=== PATIENT | female | born 2000 | race Caucasian/White ===

== ENCOUNTER 2020-02-22 15:31 | Emergency (ER) | payer OTHER ==
[~2020-02-22] VITALS: Ht 157.5 cm; Wt 63.5 kg
== END 2020-02-22 20:11 | disposition home or self-care (01) ==
LOC: ER 15:31
DX: O26.891 Other specified pregnancy related conditions, first trimester (principal); K29.60 Other gastritis without bleeding; Z3A.01 Less than 8 weeks gestation of pregnancy

== ENCOUNTER 2020-03-14 13:32 | Emergency (ER) | payer OTHER ==
[~2020-03-14] VITALS: Ht 157.5 cm; Wt 62.6 kg
[2020-03-14] MEDS ORDERED: PRENATABS FA T1 EACH (13:42)
== END 2020-03-14 17:24 | disposition home or self-care (01) ==
LOC: ER 13:32
DX: O26.891 Other specified pregnancy related conditions, first trimester (principal); R51 Headache; O26.851 Spotting complicating pregnancy, first trimester; O36.80X0 Pregnancy with inconclusive fetal viability, not applicable or unspecified; Z03.818 Encounter for observation for suspected exposure to other biological agents ruled out; Z3A.09 9 weeks gestation of pregnancy

== ENCOUNTER → 2020-06-05 | Outpatient (CLI) | payer OTHER ==
[~2020-06-05] MED LIST: PRENATABS FA T1 EACH
== END | disposition home or self-care (01) ==
LOC: PRENATAL 13:00
PROVIDERS: ATTEND Obstetrics & Gynecology Maternal & Fetal Medicine
DX: O35.0XX1 Maternal care for (suspected) central nervous system malformation in fetus, fetus 1 (principal); O35.3XX1 Maternal care for (suspected) damage to fetus from viral disease in mother, fetus 1; O98.512 Other viral diseases complicating pregnancy, second trimester; O99.891 Other specified diseases and conditions complicating pregnancy; Z36.89 Encounter for other specified antenatal screening; Z3A.22 22 weeks gestation of pregnancy

== ENCOUNTER 2020-07-18 20:33 | Inpatient (IN) | payer OTHER ==
[~2020-07-18] VITALS: Ht 157.5 cm; Wt 65.8 kg
== END 2020-07-26 11:11 | disposition home or self-care (01) | DRG 832 ==
LOC: OBS/DEL 20:33 → LDR 07-19 15:45 → OBS/DEL 07-19 15:45 → OB/GYN 07-20 16:18
PROVIDERS: ADMIT Obstetrics & Gynecology; ATTEND Obstetrics & Gynecology
PROC: BY4FZZZ Ultrasonography of Third Trimester, Single Fetus (ICD-10-PCS; principal; 2020-07-19)
PROC: 4A1HXFZ Monitoring of Products of Conception, Cardiac Rhythm, External Approach (ICD-10-PCS; 2020-07-19)
DX: O60.03 Preterm labor without delivery, third trimester (principal); O26.873 Cervical shortening, third trimester; Z3A.28 28 weeks gestation of pregnancy